=== PATIENT | female | born 1960 | race Caucasian/White ===

== ENCOUNTER 2020-04-04 10:44 | Emergency (ER) | payer BC ==
[~2020-04-04] VITALS: Ht 160 cm; Wt 59.1 kg
[~2020-04-04 10:44] MED LIST: AMITRIPTYLIN25 MG PO; AMOXICILLIN500 MG PO; ATORVASTATIN CA20 MG PO; CARAFATE1 GM PO; CIPROFLOXACN500 MG PO; CLARITIN10 M1 PO; FLAGYL500 MG PO; LORTAB 7.57.5 MG PO; NEXIUM20 M1 PO; NEXIUM40 M1 PO; NO MEDS; OMEPRAZOLE20 MG PO; PANTOPRAZOLE SO40 MG PO; PERCOCET 5/325M1 TAB PO; PHENERGAN25 MG/TAB PO; PRAVASTATIN SOD10 MG PO; PRAVASTATIN20 MG PO; PRILOSEC20 MG PO; PROCTOCORT1 % RE; PROTONIX20 M1 PO; PROTONIX40 M2 PO; TRAMADOL HCL50 MG PO; TYLENOL 500MG TAB PO; TYLENOL COLD PO; XANAX0.5 MG PO; ZOFRAN ODT4 MG PO; [UNRECOGNIZED DRUG - OTHER] PO
[2020-04-04 11:12] LABS: IMMATURE GRANULOCYTES 3.1 % (0.0-5.0); MEAN CELL VOLUME 85.6 fL CALC (80.0-100.0); MEAN CORPUSCULAR HGB 28.8 pG CALC (26.0-32.0); MEAN CORPUSCULAR HGB CONC 33.6 g/dL CAL (32.0-36.0); NEUT# 11.96 thou/uL (2.00-7.15); RED BLOOD COUNT 5.21 mill/uL (4.20-5.60); RED CELL DISTRI WIDTH 12.5 % (11.5-15.5)
[2020-04-04 11:16] LABS: HEMATOCRIT 44.6 % (37.0-47.0)
[2020-04-04 11:36] LABS: ALBUMIN 4.9 g/dL (3.2-5.0); ANION GAP 15 (6-22 (CALC)); BILIRUBIN, TOTAL 0.4 mg/dL (0.0-1.4); BUN 13 mg/dL (7-17); BUN/CREATININE RATIO 24 (12-20 (CALC)); CARBON DIOXIDE 23 mmol/l (22-30); CHLORIDE 102 mmol/l (95-108); CREATININE 0.6 mg/dL (0.5-1.0); GFR > 60 ML/MIN (>=60 (CALC)); GFR FOR AFR.AMER. > 60 ML/MIN (>=60 (CALC)); SODIUM 136 mmol/l (137-146); TOTAL PROTEIN 7.9 g/dL (6.3-8.2)
[2020-04-04 11:37] LABS: ALKALINE PHOSPHATASE 129 u/l (38-126); SGOT/AST 22 u/l (14-36)
[2020-04-04] MEDS ORDERED: OMEPRAZOLE DR20 MG PO (11:38)
[2020-04-04] MEDS ORDERED: STERIOD (11:55)
[2020-04-04 13:00] VITALS: BP 135/73
== END 2020-04-04 13:19 | disposition short-term general hospital (02) | DRG 313 ==
LOC: ED 10:44
PROVIDERS: Family Medicine
DX: R07.9 Chest pain, unspecified (principal); K21.9 Gastro-esophageal reflux disease without esophagitis
CPT/HCPCS: J1644; Q9967

== ENCOUNTER 2020-04-22 15:10 | Emergency (ER) | payer BC ==
[~2020-04-22] VITALS: Ht 160 cm; Wt 65.0 kg
[~2020-04-22 15:10] MED LIST changes: +OMEPRAZOLE DR20 MG PO; +STERIOD
[2020-04-22 15:46] LABS: IMMATURE GRANULOCYTES 0.6 % (0.0-5.0); MEAN CELL VOLUME 88.3 fL CALC (80.0-100.0); MEAN CORPUSCULAR HGB 28.9 pG CALC (26.0-32.0); MEAN CORPUSCULAR HGB CONC 32.7 g/dL CAL (32.0-36.0); NEUT# 5.25 thou/uL (2.00-7.15); RED BLOOD COUNT 3.5 mill/uL (4.20-5.60); RED CELL DISTRI WIDTH 14.6 % (11.5-15.5)
[2020-04-22 15:48] LABS: HEMATOCRIT 30.9 % (37.0-47.0); HEMOGLOBIN 10.1 g/dl (12.0-16.0)
[2020-04-22 15:49] LABS: GFR > 60 ML/MIN (>=60 (CALC)); GFR FOR AFR.AMER. > 60 ML/MIN (>=60 (CALC))
[2020-04-22 15:59] LABS: ALKALINE PHOSPHATASE 160 u/l (38-126); ANION GAP 12 (6-22 (CALC)); BUN 14 mg/dL (7-17); BUN/CREATININE RATIO 24 (12-20 (CALC)); CARBON DIOXIDE 24 mmol/l (22-30); CHLORIDE 102 mmol/l (95-108); CREATININE 0.6 mg/dL (0.5-1.0); GFR > 60 ML/MIN (>=60 (CALC)); GFR FOR AFR.AMER. > 60 ML/MIN (>=60 (CALC)); POTASSIUM 3.8 mmol/l (3.5-5.1); SGOT/AST 34 u/l (14-36); SODIUM 135 mmol/l (137-146)
[2020-04-22 16:03] LABS: BILIRUBIN, TOTAL 0.9 mg/dL (0.0-1.4)
[2020-04-22 16:11] LABS: MYOGLOBIN 16 ng/mL (0 - 62)
[2020-04-22] MEDS ORDERED: ATORVASTATIN CA80 MG PO (16:23)
[2020-04-22] MEDS ORDERED: CALCIUM1250 MG PO (16:23)
[2020-04-22] MEDS ORDERED: FERR SULFATE325 MG PO (16:24)
[2020-04-22 16:59] VITALS: BP 133/74
== END 2020-04-22 16:46 | disposition short-term general hospital (02) | DRG 204 ==
LOC: ED 15:10
PROVIDERS: Family Medicine
DX: R06.02 Shortness of breath (principal); R94.31 Abnormal electrocardiogram [ECG] [EKG]; I10 Essential (primary) hypertension; F17.200 Nicotine dependence, unspecified, uncomplicated; Z95.1 Presence of aortocoronary bypass graft
CPT/HCPCS: J1644; Q9967; S0164

== ENCOUNTER 2020-06-01 08:55 | Emergency (ER) | payer BC ==
[~2020-06-01] VITALS: Ht 160 cm; Wt 57.7 kg
[~2020-06-01 08:55] MED LIST changes: +ATORVASTATIN CA80 MG PO; +CALCIUM1250 MG PO; +FERR SULFATE325 MG PO
[2020-06-01 09:38] LABS: HEMATOCRIT 32.4 % (37.0-47.0); HEMOGLOBIN 10.7 g/dl (12.0-16.0); IMMATURE GRANULOCYTES 0.5 % (0.0-5.0); MEAN CELL VOLUME 87.1 fL CALC (80.0-100.0); MEAN CORPUSCULAR HGB 28.8 pG CALC (26.0-32.0); NEUT# 4.53 thou/uL (2.00-7.15); RED BLOOD COUNT 3.72 mill/uL (4.20-5.60); RED CELL DISTRI WIDTH 13.2 % (11.5-15.5)
[2020-06-01 09:50] LABS: ALBUMIN 4.3 g/dL (3.2-5.0); ALKALINE PHOSPHATASE 145 u/l (38-126); ANION GAP 13 (6-22 (CALC)); BILIRUBIN, TOTAL 0.6 mg/dL (0.0-1.4); BUN 9 mg/dL (7-17); BUN/CREATININE RATIO 12 (12-20 (CALC)); CARBON DIOXIDE 27 mmol/l (22-30); CHLORIDE 102 mmol/l (95-108); CREATININE 0.7 mg/dL (0.5-1.0); GFR > 60 ML/MIN (>=60 (CALC)); GFR FOR AFR.AMER. > 60 ML/MIN (>=60 (CALC)); LIPASE 158 u/l (23-300); POTASSIUM 3.9 mmol/l (3.5-5.1); SGOT/AST 32 u/l (14-36); SODIUM 139 mmol/l (137-146); TOTAL PROTEIN 6.7 g/dL (6.3-8.2)
[2020-06-01 09:56] LABS: INTERNATIONAL NORMALIZED RATIO 1.1 RATIO (0.7-1.3)
[2020-06-01 10:58] VITALS: BP 145/67
== END 2020-06-01 10:58 | disposition short-term general hospital (02) | DRG 313 ==
LOC: ED 08:55
PROVIDERS: Family Medicine
DX: R07.89 Other chest pain (principal); R19.5 Other fecal abnormalities; I10 Essential (primary) hypertension; F17.200 Nicotine dependence, unspecified, uncomplicated; Z95.1 Presence of aortocoronary bypass graft

== ENCOUNTER 2020-12-06 | Observation (INO) | payer BC ==
[2020-12-06] VITALS (11 sets, daily range): BP systolic 85–113; BP diastolic 52–64
[2020-12-06 01:37] LABS: HEMOGLOBIN 11.5 g/dl (12.0-16.0); IMMATURE GRANULOCYTES 0.4 % (0.0-5.0); MEAN CELL VOLUME 88.1 fL CALC (80.0-100.0); MEAN CORPUSCULAR HGB 29.8 pG CALC (26.0-32.0); MEAN CORPUSCULAR HGB CONC 33.8 g/dL CAL (32.0-36.0); NEUT# 4.99 thou/uL (2.00-7.15); RED BLOOD COUNT 3.86 mill/uL (4.20-5.60); RED CELL DISTRI WIDTH 12.6 % (11.5-15.5)
[2020-12-06 01:55] LABS: ALBUMIN 4.7 g/dL (3.2-5.0); ALKALINE PHOSPHATASE 111 u/l (38-126); ANION GAP 13 (6-22 (CALC)); BILIRUBIN, TOTAL 0.6 mg/dL (0.0-1.4); BUN 17 mg/dL (7-17); BUN/CREATININE RATIO 17 (12-20 (CALC)); CARBON DIOXIDE 28 mmol/l (22-30); CHLORIDE 102 mmol/l (95-108); GFR 57 ML/MIN (>=60 (CALC)); GFR FOR AFR.AMER. > 60 ML/MIN (>=60 (CALC)); LIPASE 98 u/l (23-300); SGOT/AST 44 u/l (14-36); SODIUM 139 mmol/l (137-146); TOTAL PROTEIN 7.6 g/dL (6.3-8.2)
[2020-12-06 01:57] LABS: ACT PARTIAL THROMBO TIME 23.3 SECONDS (20.0-32.5); INTERNATIONAL NORMALIZED RATIO 1.1 RATIO (0.7-1.3); PROTHROMBIN TIME 11.2 SECONDS (9.0-12.5)
[2020-12-06 02:03] LABS: D-DIMER 0.3 mg/L (0.19-0.60)
[2020-12-06 02:07] LABS: MYOGLOBIN 33 ng/mL (0 - 62)
[2020-12-06] MEDS ORDERED: ASPIRIN 81 LOW81 MG PO (02:31)
[2020-12-06] MEDS ORDERED: KAPSPARGO SPRIN25 MG PO (02:34)
[2020-12-06] MEDS ORDERED: ISOSORB MONO30 MG PO (02:34)
[2020-12-06] MEDS ORDERED: PROTONIX40 M2 PO (02:36)
[2020-12-06] MEDS ORDERED: BRILINTA90 MG PO (02:37)
[2020-12-06 06:09] LABS: CHOLESTEROL HDL RATIO 4.6 (<4.4 (CALC))
[2020-12-07 00:03] VITALS: BP 90/44
[2020-12-07 04:13] VITALS: BP 116/66
[2020-12-07 06:22] LABS: HEMATOCRIT 37.2 % (37.0-47.0); HEMOGLOBIN 12.3 g/dl (12.0-16.0); MEAN CELL VOLUME 88.8 fL CALC (80.0-100.0); MEAN CORPUSCULAR HGB 29.4 pG CALC (26.0-32.0); MEAN CORPUSCULAR HGB CONC 33.1 g/dL CAL (32.0-36.0); RED BLOOD COUNT 4.19 mill/uL (4.20-5.60); RED CELL DISTRI WIDTH 12.3 % (11.5-15.5)
[2020-12-07 06:52] LABS: ANION GAP 12 (6-22 (CALC)); BUN 16 mg/dL (7-17); BUN/CREATININE RATIO 19 (12-20 (CALC)); CARBON DIOXIDE 26 mmol/l (22-30); CHLORIDE 103 mmol/l (95-108); CREATININE 0.8 mg/dL (0.5-1.0); GFR > 60 ML/MIN (>=60 (CALC)); GFR FOR AFR.AMER. > 60 ML/MIN (>=60 (CALC)); MAGNESIUM 1.8 mg/dL (1.6-2.3); SODIUM 138 mmol/l (137-146)
[2020-12-07 07:30] VITALS: BP 120/72
[2020-12-07 08:45] VITALS: BP 126/73
[2020-12-07 08:50] VITALS: BP 120/72; BP 127/79
[2020-12-07 10:57] VITALS: BP 121/66
== END 2020-12-07 13:00 | disposition home or self-care (01) | DRG 948 ==
PROVIDERS: Family Medicine; Nurse Practitioner; ADMIT Internal Medicine
DX: R53.1 Weakness (principal); R55 Syncope and collapse; R07.89 Other chest pain; I95.2 Hypotension due to drugs; T44.7X5A Adverse effect of beta-adrenoreceptor antagonists, initial encounter; R00.1 Bradycardia, unspecified; I10 Essential (primary) hypertension; I25.10 Atherosclerotic heart disease of native coronary artery without angina pectoris; E78.5 Hyperlipidemia, unspecified; K31.84 Gastroparesis; K21.9 Gastro-esophageal reflux disease without esophagitis; I25.2 Old myocardial infarction; Z87.891 Personal history of nicotine dependence; Z95.1 Presence of aortocoronary bypass graft; Z20.822 Contact with and (suspected) exposure to COVID-19
CPT/HCPCS: G0378; J1650

== ENCOUNTER 2024-06-18 15:53 | Emergency (ER) | payer BC ==
[2024-06-18] VITALS (8 sets, daily range): BP systolic 83–142; BP diastolic 60–111
[~2024-06-18] VITALS: Ht 157.5 cm; Wt 80.0 kg
[~2024-06-18 15:53] MED LIST changes: +ASPIRIN 81 LOW81 MG PO; +BRILINTA90 MG PO; +EZETIMIBE10 MG PO; +FISH OIL1000 M1 PO; +ISOSORB MONO30 MG PO; +KAPSPARGO SPRIN25 MG PO; +LISINOPRIL10 MG PO; +NITROSTAT0.4 MG SL; +PEPCID20 MG PO; +PLAVIX75 MG PO; +TOPROL XL25 M1 PO; +TOPROL XL25 MG PO; +[UNRECOGNIZED DRUG - OTHER] PO
[2024-06-18] MEDS ORDERED: ACETAMINOPHEN 500 MG TAB PO ONE (16:10)
[2024-06-18] MEDS ORDERED: IBUPROFEN 600 MG/TAB PO ONE (16:10)
== END 2024-06-18 17:33 | disposition home or self-care (01) | DRG 605 ==
LOC: ED 15:53
DX: S60.221A Contusion of right hand, initial encounter (principal); I10 Essential (primary) hypertension; I25.2 Old myocardial infarction; W22.8XXA Striking against or struck by other objects, initial encounter; Y93.H9 Activity, other involving exterior property and land maintenance, building and construction; Y92.007 Garden or yard of unspecified non-institutional (private) residence as the place of occurrence of the external cause

== ENCOUNTER 2024-09-25 20:35 | Observation (INO) | payer OTHER ==
[~2024-09-25] VITALS: Ht 157.5 cm; Wt 63.0 kg
[2024-09-25 20:43] VITALS: BP 128/75
[2024-09-25] MEDS ORDERED: ALUM & MAG HYDROX-SIMETHICONE 30 ML PO ONE (20:45)
[2024-09-25] MEDS ORDERED: LIDOCAINE VISCOUS 2% 15 ML UDC PO ONE (20:45)
[2024-09-25] MEDS ORDERED: Pantoprazole Sodium 40 MG VIAL (Protonix) IV ONE (20:50)
[2024-09-25 20:55] LABS: BASO% 0.8 % (0-3); EOS% 1.9 % (0-8); HEMATOCRIT 37.3 % (37.0-47.0); IMMATURE GRANULOCYTES 0.2 % (0.0-5.0); LYMPH% 37.8 % (15-41); MEAN CELL VOLUME 84.6 fL CALC (80.0-100.0); MEAN CORPUSCULAR HGB 29.5 pG CALC (26.0-32.0); MEAN CORPUSCULAR HGB CONC 34.9 g/dL CAL (32.0-36.0); MONO% 9.2 % (2-13); NEUT# 5.66 thou/uL (2.00-7.15); NEUT% 50.1 % (42-76); RED BLOOD COUNT 4.41 mill/uL (4.20-5.60); RED CELL DISTRI WIDTH 12.3 % (11.5-15.5)
[2024-09-25 21:00] VITALS: BP 124/68
[2024-09-25 21:06] LABS: ALBUMIN 4.6 g/dL (3.2-5.0); BILIRUBIN, TOTAL 0.6 mg/dL (0.02-1.3); CREATININE 1.1 mg/dL (0.5-1.0); POTASSIUM 4.5 mmol/l (3.5-5.1); TOTAL PROTEIN 7.4 g/dL (6.3-8.2)
[2024-09-25 21:19] LABS: ACT PARTIAL THROMBO TIME 25.8 SECONDS (20.0-32.5); D-DIMER 0.34 mg/L (0.19-0.60)
[2024-09-25 21:20] LABS: PROTHROMBIN TIME 10.9 SECONDS (9.0-12.5)
[2024-09-25 21:30] VITALS: BP 114/86
[2024-09-25] MEDS ORDERED: ONDANSETRON HCl 4 MG/2 ML SDV IV PRN (21:40)
[2024-09-25] MEDS ORDERED: ONDANSETRON 4 MG/TAB ODT SL PRN (21:40)
[2024-09-25] MEDS ORDERED: Polyethylene Glycol 3350 17 GM/PKT PO PRN (21:40)
[2024-09-25] MEDS ORDERED: ACETAMINOPHEN 325 MG/TAB PO PRN (21:40)
[2024-09-25] MEDS ORDERED: NITROGLYCERIN 0.4 MG/TAB SL SCH (21:45)
[2024-09-25] MEDS ORDERED: CLOPIDOGREL BISULFATE 75 MG/TAB TAB PO SCH (21:47)
[2024-09-25] MEDS ORDERED: PANTOPRAZOLE SODIUM Sesquihydr 40 MG/TAB PO SCH (21:48)
[2024-09-25] MEDS ORDERED: ATORVASTATIN CALCIUM 40 MG/TAB PO SCH (21:48)
[2024-09-25] MEDS ORDERED: ASPIRIN 81 MG/TAB PO SCH (21:49)
[2024-09-25] MEDS ORDERED: ASPIRIN 325 MG/TAB PO ONE (21:55)
[2024-09-25 22:00] VITALS: BP 111/80
[2024-09-25] MEDS ORDERED: CLARIFY DOSE PO PRN (22:00)
[2024-09-25 22:14] LABS: CHOLESTEROL HDL RATIO 4.2 (<4.4 (CALC))
[2024-09-25 23:12] VITALS: BP 128/56
[2024-09-25 23:32] VITALS: BP 105/47
[2024-09-26] VITALS (8 sets, daily range): BP systolic 101–136; BP diastolic 46–69
[2024-09-26 04:06] LABS: BASO% 0.5 % (0-3); EOS% 2.1 % (0-8); HEMATOCRIT 35.2 % (37.0-47.0); HEMOGLOBIN 12.6 g/dl (12.0-16.0); IMMATURE GRANULOCYTES 0.4 % (0.0-5.0); LYMPH% 40.9 % (15-41); MEAN CELL VOLUME 84.2 fL CALC (80.0-100.0); MEAN CORPUSCULAR HGB 30.1 pG CALC (26.0-32.0); MEAN CORPUSCULAR HGB CONC 35.8 g/dL CAL (32.0-36.0); MONO% 9.6 % (2-13); NEUT# 4.38 thou/uL (2.00-7.15); NEUT% 46.5 % (42-76); RED BLOOD COUNT 4.18 mill/uL (4.20-5.60); RED CELL DISTRI WIDTH 12.4 % (11.5-15.5)
[2024-09-26 04:13] LABS: ALBUMIN 4.4 g/dL (3.2-5.0); BILIRUBIN, TOTAL 0.7 mg/dL (0.02-1.3); MAGNESIUM 1.5 mg/dL (1.6-2.3); POTASSIUM 4.2 mmol/l (3.5-5.1); TOTAL PROTEIN 7.1 g/dL (6.3-8.2)
[2024-09-26] MEDS ORDERED: MAGNESIUM SULFATE HEPTAHYDRATE 2 GM in SODIUM CHLORIDE 0.9% 50 ML IV SCH (12:00)
[2024-09-26] MEDS ORDERED: MAGNESIUM SULFATE HEPTAHYDRATE 50 ML IV SCH (13:30)
[2024-09-26] MEDS ORDERED: NITROGLYCERIN 0.4 MG/TAB SL PRN (20:15)
[2024-09-26] MEDS ORDERED: ENOXAPARIN SODIUM 40 MG/0.4 ML SYR SC SCH (21:00)
[2024-09-26] MEDS ORDERED: ENOXAPARIN SODIUM 30 MG/0.3 ML INJ SC SCH (21:00)
[2024-09-27 03:38] VITALS: BP 106/67
[2024-09-27 05:02] VITALS: BP 106/67
[2024-09-27 05:34] LABS: HEMATOCRIT 37.1 % (37.0-47.0); MEAN CELL VOLUME 84.3 fL CALC (80.0-100.0); MEAN CORPUSCULAR HGB 29.5 pG CALC (26.0-32.0); RED BLOOD COUNT 4.4 mill/uL (4.20-5.60); RED CELL DISTRI WIDTH 12.1 % (11.5-15.5)
[2024-09-27 05:53] LABS: ALBUMIN 4.4 g/dL (3.2-5.0); BILIRUBIN, TOTAL 0.6 mg/dL (0.02-1.3); POTASSIUM 4.5 mmol/l (3.5-5.1)
[2024-09-27 07:36] VITALS: BP 123/71
[2024-09-27] MEDS ORDERED: INFLUENZA VIRUS VACCINE (FLUARIX) 2024/25 0.5 ML INJ IM SCH (09:00)
[2024-09-27] MEDS ORDERED: PNEUMOCOCCAL 20-VALENT CONJUGA 0.5 ML/DOSE INJ IM SCH (09:00)
== END 2024-09-27 11:16 | disposition home or self-care (01) | DRG 313 ==
LOC: ED 20:35 → ED-I 21:17 → ED 21:39 → MS2 21:40
PROVIDERS: Family Medicine; Nurse Practitioner Family; ADMIT Internal Medicine; ATTEND Internal Medicine
PROC: 3E02340 Introduction of Influenza Vaccine into Muscle, Percutaneous Approach (ICD-10-PCS; principal; 2024-09-27)
PROC: 3E0234Z Introduction of Serum, Toxoid and Vaccine into Muscle, Percutaneous Approach (ICD-10-PCS; 2024-09-27)
DX: R07.9 Chest pain, unspecified (principal); I10 Essential (primary) hypertension; I25.10 Atherosclerotic heart disease of native coronary artery without angina pectoris; E78.5 Hyperlipidemia, unspecified; K21.9 Gastro-esophageal reflux disease without esophagitis; K31.84 Gastroparesis; K44.9 Diaphragmatic hernia without obstruction or gangrene; I25.2 Old myocardial infarction; Z95.1 Presence of aortocoronary bypass graft; Z95.5 Presence of coronary angioplasty implant and graft; Z23 Encounter for immunization
CPT/HCPCS: 90656; G0378; J1650; J2470; J3475